=== PATIENT | male | born 1935 | race Caucasian/White ===

== ENCOUNTER 2017-11-15 02:37 | Inpatient (IN) | payer MEDICARE, OTHER ==
[~2017-11-15] VITALS: Ht 180.3 cm; Wt 65.7 kg
[2017-11-15] VITALS (23 sets, daily range): BP systolic 114–166; BP diastolic 68–97; Ht 180.3 cm; Wt 65.7 kg
[2017-11-15] MEDS ORDERED: FERROUS SULFAT325 MG PO (05:45)
[2017-11-15] MEDS ORDERED: ASCORBIC ACID500 MG PO (05:50)
[2017-11-15] MEDS ORDERED: METAMUCIL1042 GM PO (05:52)
[2017-11-15] MEDS ORDERED: ZOLOFT25 MG PO (05:53)
[2017-11-15] MEDS ORDERED: OXYBUTYNIN CHLOR5 MG PO (05:54)
[2017-11-15] MEDS ORDERED: ZANTAC300 MG PO (05:55)
[2017-11-15] MEDS ORDERED: GABAPENTIN100 MG PO (05:59)
[2017-11-15] MEDS ORDERED: ZOFRAN8 MG PO (06:01)
[2017-11-15] MEDS ORDERED: ACETAMINOPHEN325 MG PO (06:05)
[2017-11-15 09:25] LABS: CALC OSMOLALITY 252 mosm/kg (275-300); CARBON DIOXIDE 25.1 mmol/L (21.0-32.0); CHLORIDE - SERUM 95 mmol/L (98-107); CREATININE - SERUM 0.5 mg/dL (0.6-1.3); GLUCOSE 86 mg/dL (74-106); POTASSIUM - SERUM 3.8 mmol/L (3.5-5.1); SODIUM 127 mmol/L (136-145); UREA NITROGEN 10 mg/dL (7-18); eGFR NON AFRICAN AMERICAN > 90 mL/min (90-120)
[2017-11-15 10:01] LABS: HEMOGLOBIN 9.5 g/dL (13.5-17.5); LYMPHOCYTES 2.6 % (15-50); MCH 25.5 pg (26.0-34.0); MCHC 31.7 g/dL (31.0-37.0); MCV 80.6 fL (80.0-100.0); PLATELET COUNT 355 10x3/uL (130-400); RBC 3.72 10x6/uL (4.20-6.10); RDW 17.1 % (11.5-14.5); WBC 13.9 10x3/uL (4.8-10.8)
[2017-11-15 12:50] LABS: % SATURATION 17 % (15-55); IRON 12 ug/dl (35-150); TOTAL IRON BIND CAPACITY 68 ug/dl (260-445); UNSAT IRON BIND CAPACITY 56 ug/dl (150-375)
[2017-11-15 14:55] LABS: APPEARANCE CLEAR (CLEAR); BILIRUBIN NEGATIVE (NEGATIVE); COLOR YELLOW (YELLOW); GLUCOSE NEGATIVE (NEGATIVE); KETONE NEGATIVE (NEGATIVE); NITRITE NEGATIVE (NEGATIVE); PROTEIN NEGATIVE (NEGATIVE); SPECIFIC GRAVITY 1.015 (1.005-1.020); UROBILINOGEN NORMAL (NORMAL)
[2017-11-16] VITALS (14 sets, daily range): BP systolic 118–156; BP diastolic 65–88
[2017-11-16 04:08] LABS: BASOPHILS 0 % (0-2); EOSINOPHILS 0.1 % (0-7); HEMOGLOBIN 9.1 g/dL (13.5-17.5); IMMATURE GRANULOCYTES 0.3 % (0-5); LYMPHOCYTES 4.6 % (15-50); MCH 25.3 pg (26.0-34.0); MCHC 31.4 g/dL (31.0-37.0); MCV 80.6 fL (80.0-100.0); MEAN PLATELET VOLUME 8.5 fL (7.4-10.4); MONOCYTES 8.7 % (2-11); NEUTROPHILS 86.3 % (40-80); PLATELET COUNT 302 10x3/uL (130-400); RDW 17.7 % (11.5-14.5); WBC 13.4 10x3/uL (4.8-10.8)
[2017-11-16 04:28] LABS: CALC OSMOLALITY 256 mosm/kg (275-300); CALCIUM 8.9 mg/dL (8.5-10.1); CARBON DIOXIDE 26.5 mmol/L (21.0-32.0); CHLORIDE - SERUM 95 mmol/L (98-107); CREATININE - SERUM 0.5 mg/dL (0.6-1.3); GLUCOSE 114 mg/dL (74-106); POTASSIUM - SERUM 3.7 mmol/L (3.5-5.1); SODIUM 128 mmol/L (136-145); UREA NITROGEN 11 mg/dL (7-18); eGFR NON AFRICAN AMERICAN > 90 mL/min (90-120)
[2017-11-16 09:12] LABS: FOLATE (FOLIC ACID) - SERUM 9.7 ng/mL (>3.0)
[2017-11-17 01:10] VITALS: BP 128/67
[2017-11-17 05:28] VITALS: BP 127/66
[2017-11-17 08:08] LABS: BASOPHILS 0 % (0-2); EOSINOPHILS 0.2 % (0-7); HEMATOCRIT 28.3 % (42.0-54.0); HEMOGLOBIN 8.9 g/dL (13.5-17.5); IMMATURE GRANULOCYTES 0.2 % (0-5); LYMPHOCYTES 3.5 % (15-50); MCH 25.4 pg (26.0-34.0); MCHC 31.4 g/dL (31.0-37.0); MCV 80.9 fL (80.0-100.0); MEAN PLATELET VOLUME 8.6 fL (7.4-10.4); MONOCYTES 10.5 % (2-11); NEUTROPHILS 85.6 % (40-80); PLATELET COUNT 259 10x3/uL (130-400); RDW 17.6 % (11.5-14.5); WBC 12.5 10x3/uL (4.8-10.8)
[2017-11-17 08:24] LABS: CALC OSMOLALITY 253 mosm/kg (275-300); CALCIUM 9.2 mg/dL (8.5-10.1); CARBON DIOXIDE 26.9 mmol/L (21.0-32.0); CHLORIDE - SERUM 96 mmol/L (98-107); CREATININE - SERUM 0.5 mg/dL (0.6-1.3); GLUCOSE 93 mg/dL (74-106); POTASSIUM - SERUM 3.6 mmol/L (3.5-5.1); SODIUM 127 mmol/L (136-145); UREA NITROGEN 9 mg/dL (7-18); eGFR NON AFRICAN AMERICAN > 90 mL/min (90-120)
[2017-11-17 09:27] VITALS: BP 114/63
[2017-11-17 12:09] VITALS: BP 120/79
[2017-11-17 15:05] VITALS: BP 124/73
[2017-11-17 20:00] VITALS: BP 139/74
[2017-11-18] VITALS: BP 124/62
[2017-11-18 04:00] VITALS: BP 130/65
[2017-11-18 05:21] LABS: BASOPHILS 0 % (0-2); EOSINOPHILS 0.2 % (0-7); HEMATOCRIT 27.9 % (42.0-54.0); HEMOGLOBIN 8.7 g/dL (13.5-17.5); IMMATURE GRANULOCYTES 0.4 % (0-5); LYMPHOCYTES 4.1 % (15-50); MCH 25.3 pg (26.0-34.0); MCHC 31.2 g/dL (31.0-37.0); MCV 81.1 fL (80.0-100.0); MEAN PLATELET VOLUME 8.6 fL (7.4-10.4); MONOCYTES 9.4 % (2-11); NEUTROPHILS 85.9 % (40-80); PLATELET COUNT 254 10x3/uL (130-400); RBC 3.44 10x6/uL (4.20-6.10); RDW 17.6 % (11.5-14.5); WBC 13.9 10x3/uL (4.8-10.8)
[2017-11-18 05:30] LABS: INR 1.42 (0.85-1.17); PROTIME 16.9 SECONDS (11.6-15.0)
[2017-11-18 05:31] LABS: APTT 44.9 SECONDS (22.8-39.4)
[2017-11-18 05:34] LABS: CALC OSMOLALITY 260 mosm/kg (275-300); CALCIUM 8.9 mg/dL (8.5-10.1); CHLORIDE - SERUM 97 mmol/L (98-107); CREATININE - SERUM 0.5 mg/dL (0.6-1.3); GLUCOSE 111 mg/dL (74-106); POTASSIUM - SERUM 3.3 mmol/L (3.5-5.1); SODIUM 130 mmol/L (136-145); UREA NITROGEN 10 mg/dL (7-18); eGFR NON AFRICAN AMERICAN > 90 mL/min (90-120)
[2017-11-18 08:25] VITALS: BP 131/68
[2017-11-18 11:13] LABS: ALPHA FETOPROTEIN -(TUMOR MRK) <0.7 ng/mL (0.0-8.3); CA 19-9 3 U/mL (0-35); CEA 2.6 ng/mL (0.0-4.7)
[2017-11-18 12:41] LABS: BILIRUBIN - DIRECT 0.12 mg/dL (0.00-0.30); BILIRUBIN - INDIRECT 0.36 mg/dL (0.00-1.00); BILIRUBIN - TOTAL 0.48 mg/dL (0.2-1.3); PROTEIN - SERUM 6.8 g/dL (6.4-8.2)
[2017-11-18 16:23] VITALS: BP 126/64
[2017-11-18 20:00] VITALS: BP 117/65
[2017-11-19] VITALS: BP 124/69
[2017-11-19 04:00] VITALS: BP 133/69
[2017-11-19 06:11] LABS: BASOPHILS 0 % (0-2); EOSINOPHILS 0.2 % (0-7); HEMATOCRIT 27.3 % (42.0-54.0); HEMOGLOBIN 8.4 g/dL (13.5-17.5); IMMATURE GRANULOCYTES 0.3 % (0-5); LYMPHOCYTES 6.1 % (15-50); MCH 25.1 pg (26.0-34.0); MCHC 30.8 g/dL (31.0-37.0); MCV 81.5 fL (80.0-100.0); MEAN PLATELET VOLUME 8.9 fL (7.4-10.4); MONOCYTES 9.7 % (2-11); NEUTROPHILS 83.7 % (40-80); PLATELET COUNT 211 10x3/uL (130-400); RBC 3.35 10x6/uL (4.20-6.10); RDW 17.8 % (11.5-14.5); WBC 13.2 10x3/uL (4.8-10.8)
[2017-11-19 06:21] LABS: CALC OSMOLALITY 261 mosm/kg (275-300); CALCIUM 8.9 mg/dL (8.5-10.1); CARBON DIOXIDE 26.5 mmol/L (21.0-32.0); CHLORIDE - SERUM 99 mmol/L (98-107); CREATININE - SERUM 0.5 mg/dL (0.6-1.3); GLUCOSE 95 mg/dL (74-106); POTASSIUM - SERUM 3.7 mmol/L (3.5-5.1); SODIUM 131 mmol/L (136-145); UREA NITROGEN 10 mg/dL (7-18); eGFR NON AFRICAN AMERICAN > 90 mL/min (90-120)
[2017-11-19 08:07] VITALS: BP 112/59
[2017-11-19 10:46] VITALS: BP 118/62
[2017-11-19 15:33] VITALS: BP 120/66
[2017-11-19 19:59] VITALS: BP 118/65
[2017-11-20] VITALS: BP 121/66
[2017-11-20 05:53] LABS: BASOPHILS 0.1 % (0-2); EOSINOPHILS 0.1 % (0-7); HEMATOCRIT 26.6 % (42.0-54.0); HEMOGLOBIN 8.3 g/dL (13.5-17.5); IMMATURE GRANULOCYTES 0.5 % (0-5); MCH 25.2 pg (26.0-34.0); MCHC 31.2 g/dL (31.0-37.0); MCV 80.6 fL (80.0-100.0); MONOCYTES 9.1 % (2-11); NEUTROPHILS 85.2 % (40-80); PLATELET COUNT 193 10x3/uL (130-400); RDW 17.8 % (11.5-14.5); WBC 13.2 10x3/uL (4.8-10.8)
[2017-11-20 06:09] LABS: CALC OSMOLALITY 262 mosm/kg (275-300); CALCIUM 9.4 mg/dL (8.5-10.1); CARBON DIOXIDE 26.4 mmol/L (21.0-32.0); CHLORIDE - SERUM 99 mmol/L (98-107); CREATININE - SERUM 0.5 mg/dL (0.6-1.3); GLUCOSE 104 mg/dL (74-106); POTASSIUM - SERUM 3.6 mmol/L (3.5-5.1); SODIUM 131 mmol/L (136-145); eGFR NON AFRICAN AMERICAN > 90 mL/min (90-120)
[2017-11-20 06:14] LABS: UREA NITROGEN 13 mg/dL (7-18)
[2017-11-20 06:29] VITALS: BP 106/55
[2017-11-20 08:35] VITALS: BP 120/59
[2017-11-20 13:01] VITALS: BP 107/61
[2017-11-20 18:39] VITALS: BP 118/63
[2017-11-20 21:17] VITALS: BP 117/66
[2017-11-21 01:28] VITALS: BP 118/65
[2017-11-21 05:36] VITALS: BP 121/66
[2017-11-21 08:36] VITALS: BP 119/61
[2017-11-21 11:52] VITALS: BP 132/63
[2017-11-21 14:01] LABS: ALKALINE PHOSPHATASE 144 U/L (46-116); ALT (SGPT) 22 U/L (10-68); BILIRUBIN - TOTAL 0.63 mg/dL (0.2-1.3); CALC OSMOLALITY 261 mosm/kg (275-300); CALCIUM 9.9 mg/dL (8.5-10.1); CARBON DIOXIDE 25.9 mmol/L (21.0-32.0); CHLORIDE - SERUM 97 mmol/L (98-107); GLUCOSE 125 mg/dL (74-106); POTASSIUM - SERUM 3.8 mmol/L (3.5-5.1); PROTEIN - SERUM 5.6 g/dL (6.4-8.2); SODIUM 130 mmol/L (136-145); UREA NITROGEN 13 mg/dL (7-18)
[2017-11-21 14:02] LABS: CREATININE - SERUM 0.8 mg/dL (0.6-1.3); eGFR NON AFRICAN AMERICAN > 90 mL/min (90-120)
[2017-11-21 14:09] LABS: BASOPHILS 0.1 % (0-2); EOSINOPHILS 0.1 % (0-7); HEMATOCRIT 28.8 % (42.0-54.0); HEMOGLOBIN 9.1 g/dL (13.5-17.5); IMMATURE GRANULOCYTES 0.4 % (0-5); LYMPHOCYTES 4.3 % (15-50); MCH 25.9 pg (26.0-34.0); MCHC 31.6 g/dL (31.0-37.0); MCV 82.1 fL (80.0-100.0); MEAN PLATELET VOLUME 9.1 fL (7.4-10.4); MONOCYTES 10.9 % (2-11); NEUTROPHILS 84.2 % (40-80); PLATELET COUNT 184 10x3/uL (130-400); RBC 3.51 10x6/uL (4.20-6.10)
[2017-11-21 15:40] VITALS: BP 110/55
[2017-11-21 20:37] VITALS: BP 126/63
[2017-11-22 00:46] VITALS: BP 111/56
[2017-11-22 05:50] VITALS: BP 111/70
[2017-11-22 06:32] LABS: BASOPHILS 0 % (0-2); EOSINOPHILS 0.1 % (0-7); HEMATOCRIT 27.1 % (42.0-54.0); HEMOGLOBIN 8.4 g/dL (13.5-17.5); IMMATURE GRANULOCYTES 0.3 % (0-5); LYMPHOCYTES 6.9 % (15-50); MCH 25.1 pg (26.0-34.0); MCV 80.9 fL (80.0-100.0); MEAN PLATELET VOLUME 9.2 fL (7.4-10.4); MONOCYTES 9.9 % (2-11); NEUTROPHILS 82.8 % (40-80); PLATELET COUNT 198 10x3/uL (130-400); RBC 3.35 10x6/uL (4.20-6.10); RDW 18.2 % (11.5-14.5); WBC 14.4 10x3/uL (4.8-10.8)
[2017-11-22 07:06] LABS: ALBUMIN 0.9 g/dL (3.4-5.0); ALKALINE PHOSPHATASE 134 U/L (46-116); ALT (SGPT) 20 U/L (10-68); CALC OSMOLALITY 261 mosm/kg (275-300); CALCIUM 9.9 mg/dL (8.5-10.1); CARBON DIOXIDE 25.6 mmol/L (21.0-32.0); CHLORIDE - SERUM 99 mmol/L (98-107); CREATININE - SERUM 0.7 mg/dL (0.6-1.3); GLUCOSE 100 mg/dL (74-106); POTASSIUM - SERUM 3.5 mmol/L (3.5-5.1); PROTEIN - SERUM 5.4 g/dL (6.4-8.2); SODIUM 130 mmol/L (136-145); UREA NITROGEN 14 mg/dL (7-18); eGFR NON AFRICAN AMERICAN > 90 mL/min (90-120)
[2017-11-22 07:55] VITALS: BP 110/65
[2017-11-22 11:37] VITALS: BP 105/60
[2017-11-22 15:35] VITALS: BP 114/65
[2017-11-22 19:00] VITALS: BP 112/55
[2017-11-23] VITALS: BP 117/62
[2017-11-23 04:00] VITALS: BP 111/62
[2017-11-23 07:07] LABS: BASOPHILS 0.1 % (0-2); EOSINOPHILS 0.1 % (0-7); HEMATOCRIT 25.9 % (42.0-54.0); HEMOGLOBIN 8.1 g/dL (13.5-17.5); IMMATURE GRANULOCYTES 0.4 % (0-5); LYMPHOCYTES 5.7 % (15-50); MCH 25.4 pg (26.0-34.0); MCHC 31.3 g/dL (31.0-37.0); MCV 81.2 fL (80.0-100.0); MEAN PLATELET VOLUME 9.2 fL (7.4-10.4); MONOCYTES 10.9 % (2-11); NEUTROPHILS 82.8 % (40-80); PLATELET COUNT 179 10x3/uL (130-400); RBC 3.19 10x6/uL (4.20-6.10); RDW 18.3 % (11.5-14.5); WBC 13.3 10x3/uL (4.8-10.8)
[2017-11-23 07:38] LABS: ALBUMIN 0.9 g/dL (3.4-5.0); ALKALINE PHOSPHATASE 121 U/L (46-116); BILIRUBIN - TOTAL 0.53 mg/dL (0.2-1.3); CALC OSMOLALITY 265 mosm/kg (275-300); CARBON DIOXIDE 26.3 mmol/L (21.0-32.0); CHLORIDE - SERUM 100 mmol/L (98-107); CREATININE - SERUM 0.7 mg/dL (0.6-1.3); GLUCOSE 99 mg/dL (74-106); POTASSIUM - SERUM 3.3 mmol/L (3.5-5.1); PROTEIN - SERUM 5.2 g/dL (6.4-8.2); SODIUM 132 mmol/L (136-145); UREA NITROGEN 14 mg/dL (7-18); eGFR NON AFRICAN AMERICAN > 90 mL/min (90-120)
[2017-11-23 07:42] LABS: ALT (SGPT) 13 U/L (10-68)
[2017-11-23 08:52] VITALS: BP 106/59
[2017-11-23 11:35] VITALS: BP 108/66
[2017-11-23 16:21] VITALS: BP 103/60
[2017-11-23 20:59] VITALS: BP 110/54
[2017-11-24 02:21] VITALS: BP 111/58
[2017-11-24 06:13] VITALS: BP 121/75
[2017-11-24 06:58] LABS: BASOPHILS 0 % (0-2); EOSINOPHILS 0.1 % (0-7); HEMATOCRIT 30.5 % (42.0-54.0); IMMATURE GRANULOCYTES 0.4 % (0-5); LYMPHOCYTES 4.4 % (15-50); MCH 26.5 pg (26.0-34.0); MCHC 32.5 g/dL (31.0-37.0); MCV 81.6 fL (80.0-100.0); MONOCYTES 10.4 % (2-11); NEUTROPHILS 84.7 % (40-80); RBC 3.74 10x6/uL (4.20-6.10); RDW 17.7 % (11.5-14.5)
[2017-11-24 07:00] LABS: HEMOGLOBIN 9.9 g/dL (13.5-17.5); PLATELET COUNT 143 10x3/uL (130-400)
[2017-11-24 07:33] LABS: ALBUMIN 0.9 g/dL (3.4-5.0); ALKALINE PHOSPHATASE 132 U/L (46-116); BILIRUBIN - TOTAL 0.58 mg/dL (0.2-1.3); CALC OSMOLALITY 265 mosm/kg (275-300); CALCIUM 10.1 mg/dL (8.5-10.1); CARBON DIOXIDE 24.2 mmol/L (21.0-32.0); CHLORIDE - SERUM 100 mmol/L (98-107); CREATININE - SERUM 0.7 mg/dL (0.6-1.3); GLUCOSE 107 mg/dL (74-106); POTASSIUM - SERUM 3.2 mmol/L (3.5-5.1); PROTEIN - SERUM 5.4 g/dL (6.4-8.2); SODIUM 132 mmol/L (136-145); UREA NITROGEN 15 mg/dL (7-18); eGFR NON AFRICAN AMERICAN > 90 mL/min (90-120)
[2017-11-24 07:35] LABS: ALT (SGPT) 17 U/L (10-68)
[2017-11-24 08:15] VITALS: BP 118/61
[2017-11-24 11:53] VITALS: BP 124/77
[2017-11-24 15:46] VITALS: BP 126/71
[2017-11-24 21:22] VITALS: BP 127/67
[2017-11-25 04:42] LABS: BASOPHILS 0 % (0-2); EOSINOPHILS 0.1 % (0-7); HEMATOCRIT 31.9 % (42.0-54.0); HEMOGLOBIN 10.3 g/dL (13.5-17.5); IMMATURE GRANULOCYTES 0.3 % (0-5); MCH 26.5 pg (26.0-34.0); MCHC 32.3 g/dL (31.0-37.0); MEAN PLATELET VOLUME 9.3 fL (7.4-10.4); NEUTROPHILS 87.6 % (40-80); PLATELET COUNT 158 10x3/uL (130-400); RBC 3.89 10x6/uL (4.20-6.10); RDW 17.7 % (11.5-14.5); WBC 14.9 10x3/uL (4.8-10.8)
[2017-11-25 05:09] VITALS: BP 116/63
[2017-11-25 05:13] LABS: ALBUMIN 0.9 g/dL (3.4-5.0); ALKALINE PHOSPHATASE 178 U/L (46-116); CALCIUM 10.3 mg/dL (8.5-10.1); CREATININE - SERUM 0.7 mg/dL (0.6-1.3); GLUCOSE 131 mg/dL (74-106); PROTEIN - SERUM 5.6 g/dL (6.4-8.2); UREA NITROGEN 17 mg/dL (7-18); eGFR NON AFRICAN AMERICAN > 90 mL/min (90-120)
[2017-11-25 05:15] LABS: ALT (SGPT) 22 U/L (10-68)
[2017-11-25 05:47] LABS: CALC OSMOLALITY 266 mosm/kg (275-300); CHLORIDE - SERUM 100 mmol/L (98-107); POTASSIUM - SERUM 3.6 mmol/L (3.5-5.1); SODIUM 131 mmol/L (136-145)
[2017-11-25 09:42] VITALS: BP 120/59
[2017-11-25 12:39] VITALS: BP 134/67
[2017-11-25 16:41] VITALS: BP 111/63
[2017-11-25 18:30] LABS: APPEARANCE CLEAR (CLEAR); BILIRUBIN NEGATIVE (NEGATIVE); COLOR YELLOW (YELLOW); GLUCOSE NEGATIVE (NEGATIVE); KETONE NEGATIVE (NEGATIVE); NITRITE NEGATIVE (NEGATIVE); PROTEIN NEGATIVE (NEGATIVE); SPECIFIC GRAVITY 1.015 (1.005-1.020); UROBILINOGEN NORMAL (NORMAL)
[2017-11-25 18:31] LABS: BACTERIA MODERATE /hpf (NONE SEEN)
[2017-11-25 21:23] VITALS: BP 118/76
[2017-11-26] VITALS (7 sets, daily range): BP systolic 108–118; BP diastolic 55–67
[2017-11-26 05:42] LABS: BASOPHILS 0 % (0-2); EOSINOPHILS 0.1 % (0-7); HEMATOCRIT 32.4 % (42.0-54.0); HEMOGLOBIN 10.2 g/dL (13.5-17.5); IMMATURE GRANULOCYTES 0.5 % (0-5); LYMPHOCYTES 4.6 % (15-50); MCHC 31.5 g/dL (31.0-37.0); MCV 82.7 fL (80.0-100.0); MEAN PLATELET VOLUME 9.7 fL (7.4-10.4); MONOCYTES 8.5 % (2-11); NEUTROPHILS 86.3 % (40-80); PLATELET COUNT 178 10x3/uL (130-400); RBC 3.92 10x6/uL (4.20-6.10); RDW 17.8 % (11.5-14.5); WBC 14.4 10x3/uL (4.8-10.8)
[2017-11-26 06:18] LABS: ALBUMIN 0.9 g/dL (3.4-5.0); ALKALINE PHOSPHATASE 149 U/L (46-116); BILIRUBIN - TOTAL 0.45 mg/dL (0.2-1.3); CALC OSMOLALITY 270 mosm/kg (275-300); CALCIUM 10.8 mg/dL (8.5-10.1); CARBON DIOXIDE 23.7 mmol/L (21.0-32.0); CHLORIDE - SERUM 102 mmol/L (98-107); CREATININE - SERUM 0.7 mg/dL (0.6-1.3); GLUCOSE 116 mg/dL (74-106); POTASSIUM - SERUM 3.7 mmol/L (3.5-5.1); PROTEIN - SERUM 5.6 g/dL (6.4-8.2); SODIUM 134 mmol/L (136-145); UREA NITROGEN 17 mg/dL (7-18); eGFR NON AFRICAN AMERICAN > 90 mL/min (90-120)
[2017-11-26 06:41] LABS: ALT (SGPT) 21 U/L (10-68)
[2017-11-26 10:18] LABS: ALPHA FETOPROTEIN -(TUMOR MRK) 1.1 ng/mL (0.0-8.3); CEA 2.3 ng/mL (0.0-4.7)
[2017-11-27 04:00] VITALS: BP 117/60
[2017-11-27 08:00] VITALS: BP 126/79
[2017-11-27 11:39] VITALS: BP 129/65
[2017-11-27 15:52] VITALS: BP 128/60
== END 2017-11-27 18:04 | disposition hospice, inpatient (51) | DRG 85 ==
LOC: D.ICU 02:37 → D.M2 04:30
PROVIDERS: Family Medicine; Internal Medicine Gastroenterology; Internal Medicine Hematology & Oncology; Internal Medicine Nephrology; Specialist
PROC: 0T9B70Z Drainage of Bladder with Drainage Device, Via Natural or Artificial Opening (ICD-10-PCS; principal; 2017-11-16)
PROC: 0FB23ZX Excision of Left Lobe Liver, Percutaneous Approach, Diagnostic (ICD-10-PCS; 2017-11-18)
DX: S06.5X0A Traumatic subdural hemorrhage without loss of consciousness, initial encounter (principal); K25.4 Chronic or unspecified gastric ulcer with hemorrhage; I26.99 Other pulmonary embolism without acute cor pulmonale; S22.089A Unspecified fracture of T11-T12 vertebra, initial encounter for closed fracture; S32.019A Unspecified fracture of first lumbar vertebra, initial encounter for closed fracture; E87.1 Hypo-osmolality and hyponatremia; M84.48XA Pathological fracture, other site, initial encounter for fracture; I82.403 Acute embolism and thrombosis of unspecified deep veins of lower extremity, bilateral; W19.XXXA Unspecified fall, initial encounter; M48.02 Spinal stenosis, cervical region; D50.9 Iron deficiency anemia, unspecified; I10 Essential (primary) hypertension; Z66 Do not resuscitate; C44.509 Unspecified malignant neoplasm of skin of other part of trunk; E88.09 Other disorders of plasma-protein metabolism, not elsewhere classified; E87.6 Hypokalemia